=== PATIENT | male | born 1955 | race Caucasian/White ===

== ENCOUNTER → 2018-12-31 | Outpatient (CLI) | payer OTHER ==
--- NOTE | 2018-12-31 16:51 | RAD ---
Examination: EXT NON VASC RIGHT History: Direct inguinal hernia on the right Comparison/Correlation: None Findings: Ultrasound imaging of the right inguinal region was performed. The region of the palpable abnormality, there is echogenic structure noted which represent omental fat. Minimal fluid also is noted possibly representing a nonobstructed loop of bowel. Findings are evident more so with Valsalva imaging. Impression: Right inguinal hernia is suspected. Electronically signed by: Kin Malhotra MD (12/31/2018 4:49 PM) [facility]
== END | disposition home or self-care (01) ==
LOC: US 16:13
DX: K40.90 Unilateral inguinal hernia, without obstruction or gangrene, not specified as recurrent (principal)
CPT/HCPCS: 76881